=== PATIENT | male | born 1970 | race Caucasian/White ===

== ENCOUNTER 2025-02-27 16:07 | Emergency (ER) | payer OTHER, SELFPAY ==
[2025-02-27 16:13] VITALS: BP 133/98
[2025-02-27 20:28] VITALS: BMI 25.7
[2025-02-27 20:30] VITALS: BP 110/79
--- NOTE | 2025-02-27 21:05 | ED.GENMED ---
History of Present Illness
General
Chief Complaint: Headache
Time Seen by Provider: 02/27/25 20:38
History of Present Illness
History of Present Illness:
Patient is a 54-year-old man with history of anxiety presenting to the emergency department with pain in the back of his head. He states that he was meditating when he developed sharp pain to the posterior right head. He states that the pain was
reproducible. He came in waves and only lasted a few seconds. He does state that he holds significant amount of stress in his face and head and is getting neuro feedback. He does feel as if there was tension while he was meditating. He does
state he also has neurology for vertigo. When the sharp pain happened in the back of his head he did not have any vision changes numbness tingling weakness or neck pain. He denies any recent manipulation or chiropractic treatments. No traumatic
injuries. Has never happened to him before. He has been pain-free for 2 hours and he only had a few episodes of this over a few hour period.
Past History
Past History
ED Past Medical History: Other (MRSA abcess right knee)
Social History
Tobacco: Smoker
Personal: Single
Living: with family
Employment: Employed
Phy Exam
Physical Exam
Physical Exam:
GENERAL: in no acute distress
HEENT: normocephalic, extraocular movements intact, pupils equal and reactive, moist oral mucosa
NECK: normal inspection, full range of motion, no reproducible tenderness
RESPIRATORY: no respiratory distress, clear to auscultation bilaterally
CARDIOVASCULAR: regular rate and rhythm
ABDOMEN/: soft, non-distended, non-tender to palpation, no rebound or guarding
EXTREMITIES: non-tender, no edema/swelling
NEUROLOGIC: alert and oriented x 3, cranial nerves II-XII intact, right upper extremity strength 5/5, left upper extremity strength 5/5, right lower extremity strength 5/5, left lower extremity strength 5/5, normal sensation to light touch, normal
[id number] and cdxy-[id number], gait not tested formally
SKIN: warm
Course
Vital Signs
Initial and Last Documented VS:
Initial Vital Signs
Temp Pulse Resp BP Pulse Ox
98.4 F 69 16 133/98 98
02/27/25 16:13 02/27/25 16:13 02/27/25 16:13 02/27/25 16:13 02/27/25 16:13
Last Documented Vital Signs
Temp Pulse Resp BP Pulse Ox
98.4 F 63 18 110/79 97
02/27/25 20:30 02/27/25 20:30 02/27/25 20:30 02/27/25 20:30 02/27/25 20:30
MDM/Problems Addressed
Differential Diagnosis Includes:
Patient is a 54-year-old male with history anxiety presenting to the emergency department with right-sided posterior head pain that he describes as a sharp pain that lasted only a few seconds for a few hours and then has been pain-free for 2 hours.
Vitals unremarkable exam shows no neurodeficits. Unclear etiology of patient's sharp shooting pain but given that it was reproducible and shooting in nature likely musculoskeletal versus nerve pain. History exam not consistent with dissection or
stroke. There was no headache so unlikely to be a migraine. We did discuss imaging and at this time we will hold off on any further imaging as he is asymptomatic. He is following up with his neurologist this coming week. Patient advised to
obtain a headache journal in case symptoms were to recur. All questions answered. Patient stable for discharge
*Critical Care Note
Total Time (30-74mins, 75-104mins- exclusive of procedures): Not Applicable
ED Attending Note
-
Portions of this chart may have been created with voice recognition software.� Occasional wrong word or��sound alike� substitutions may have occurred due to the inherent limitations of voice recognition software.
Discharge Plan
Departure
Patient Disposition: Home (Routine Discharge)
Date of Disposition: 02/27/25
Time of Disposition: 21:04
Patient with high blood pressure during this ER visit?: No
Discharge Problem:
Head pain
Prescriptions:
No Action
atorvastatin 20 mg Tablet
20 mg PO DAILY
lorazepam [Ativan] 0.5 mg Tablet
0.5 mg PO BID PRN (Reason: anxiety)
propranolol 10 mg Tablet
10 mg PO TID
tadalafil 5 mg Tablet
5 mg PO DAILY
Referrals:
Eugenio Garcia DO [Family Provider] -
Activity Restrictions/Additional Instructions:
You were seen in the Emergency Department today for head pain. Please make sure you keep your appointment with your neurologist as already scheduled
We would like for you to follow up with your primary care physician for further evaluation. If you experience fever, worsening of your symptoms, or develop any other new or concerning symptoms, please return to the Emergency Department immediately.
Please see the attached sheet for additional information.
Interventions
Interventions:
*Risk Screen - Suicide Last Done: 02/27/25 16:13
*General Assessment Last Done: 02/27/25 16:13
*Neglect/Abuse Screening Last Done: 02/27/25 16:13
*ED- Fall Risk Assessment Last Done: 02/27/25 16:13
*ED COVID-19 Vaccine History Last Done: 02/27/25 16:13
ED- Neurological Assessment Last Done: 02/27/25 20:37
Discharge Date and Time
Print Language: [id number]
== END 2025-02-27 21:20 | disposition home or self-care (01) ==
LOC: EMR 16:07
PROVIDERS: EMERGENCY PHYSICIAN Student in an Organized Health Care Education/Training Program; FAMILY PHYSICIAN Family Medicine
DX: R51.9 Headache, unspecified (principal); F17.200 Nicotine dependence, unspecified, uncomplicated
CPT/HCPCS: 99282